=== PATIENT | male | born 1955 | race Caucasian/White ===

== ENCOUNTER 2018-03-13 04:05 | Emergency (ER) | payer SELFPAY ==
[~2018-03-13] VITALS: Ht 175.3 cm; Wt 66.5 kg
[2018-03-13 04:12] VITALS: BP 151/91
--- NOTE | 2018-03-13 04:14 | ED.ADGEN ---
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 No grinding or foreign body hx. Pt. has a photo phobia.. No marked decrease in visual acuity.. Does have burning sensation in both eyes. Patient has had previous episodes of this. Patient's last tetanus approximately 3 years ago. No history immunosuppression. No specific history of ill contacts. Review of Systems Review of Systems Constitutional: Denies fever or chills [] Eyes: Denies change in visual acuity, . Patient is complaining of conjunctiva to redness, and bilateral eye pain []as per history of present illness HENT: Denies nasal congestion or sore throat [] Respiratory: Denies cough or shortness of breath [] Cardiovascular: No additional information not addressed in HPI [] GI: Denies abdominal pain, nausea, vomiting, bloody stools or diarrhea [] : Denies dysuria or hematuria [] Musculoskeletal: Denies back pain or joint pain [] Integument: Denies rash or skin lesions [] Neurologic: Denies headache, focal weakness or sensory changes [] Endocrine: Denies polyuria or polydipsia [] All other systems were reviewed and found to be within normal limits, except as documented in this note. Family History Family History Noncontributory Current Medications Current Medications Current Medications Medications (Trade) Dose Ordered Sig/Herman Start Time Stop Time Status Last Admin Dose Admin Cyclopentolate HCl (Cyclogyl) 1 drop STK-MED ONCE 03/13/18 04:26 03/13/18 05:06 DC Erythromycin (Romycin) 1 inch STK-MED ONCE 03/13/18 04:26 03/13/18 05:06 DC Eye Irrigation Solution 30 ml STK-MED ONCE 03/13/18 04:26 03/13/18 04:27 DC Fluorescein Sodium (Ful-Florinda 1mg) 1 strip STK-MED ONCE 03/13/18 04:26 03/13/18 05:06 DC Hydrocodone Bitartrate/ Ibuprofen (Vicoprofen 7.5-200) 1 tab STK-MED ONCE 03/13/18 04:27 03/13/18 05:06 DC Morphine Sulfate (Morphine 10mg Syringe) 10 mg STK-MED ONCE 03/13/18 04:45 03/13/18 05:06 DC Ondansetron HCl (Zofran Odt) 4 mg STK-MED ONCE 03/13/18 04:40 03/13/18 05:06 DC Tetracaine HCl (Tetracaine) 40 drop STK-MED ONCE 03/13/18 04:26 03/13/18 05:06 DC Allergies Allergies Allergies Coded Allergies Type Severity Reaction Last Updated Verified No Known Drug Allergies 09/29/14 No Physical Exam Physical Exam Constitutional: in acute distress, non-toxic appearance. [] HENT: Normocephalic, atraumatic, bilateral external ears normal, oropharynx moist, no oral exudates, nose normal. [] Eyes: PERRLA, EOMI, conjunctiva injected, no discharge. 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 Fundus limited but appear benign. Neck: Normal range of motion, no tenderness, supple, no stridor. [] Cardiovascular:Heart rate regular rhythm, no murmur [] Lungs & Thorax: Bilateral breath sounds equal at apex with scattered wheezes on auscultation [] Abdomen: Bowel sounds normal, soft, no tenderness, no masses, no pulsatile masses. [] Skin: Warm, dry, no erythema, no rash. [] Back: No tenderness, no CVA tenderness. [] Extremities: No tenderness, no cyanosis, no clubbing, ROM intact, no edema. [] Neurologic: Alert and oriented X 3, normal motor function, normal sensory function, no focal deficits noted. [] Psychologic: Affect Anxious, judgement normal, mood normal. [] Current Patient Data Vital Signs Vital Signs Date Time Temp Pulse Resp B/P (MAP) Pulse Ox O2 Delivery O2 Flow Rate FiO2 03/13/18 04:12 98.5 95 20 96 Room Air EKG EKG [] Radiology/Procedures Radiology/Procedures [] Course & Med Decision Making Course & Med Decision Making Pertinent Labs and Imaging studies reviewed. (See chart for details)- apply a very small amount of erythromycin ointment 4 times a day. Cool compresses may be helpful. A take Tylenol and ibuprofen for pain. Vicoprofen up to 4 times a day for marked pain. If persistent pain will need follow-up exam with ophthalmology. Patient encouraged to wear eye protection in the future. [] Final Impression Final Impression 1. Welding Eye Gregorio- [] UV Photo keratosis Dragon Disclaimer Dragon Disclaimer This electronic medical record was generated, in whole or in part, using a voice recognition dictation system. OMAR NAVARRETE MD Mar 13, 2018 04:14
[2018-03-13] MEDS ORDERED: ERYTHROMYCIN 0.5% OPHTH OINTMENT 1GM TUBE. OU ONE (04:15)
[2018-03-13] MEDS ORDERED: TETRACAINE 0.5% OPHTH SOLUTION 4ML BOTTLE. OU ONE (04:15)
[2018-03-13] MEDS ORDERED: FLUORESCEIN 1MG EYE STRIP. OU ONE (04:15)
[2018-03-13] MEDS ORDERED: HYDR-79 PO (04:25)
[2018-03-13] MEDS ORDERED: TETRACAINE 0.5% OPHTH SOLUTION 4ML BOTTLE. ONE (04:26)
[2018-03-13] MEDS ORDERED: ERYTHROMYCIN 0.5% OPHTH OINTMENT 1GM TUBE. ONE (04:26)
[2018-03-13] MEDS ORDERED: EYE-STREAM OPTH SOLUTION 30 ML BOTTLE. ONE (04:26)
[2018-03-13] MEDS ORDERED: CYCLOPENTOLATE 1% OPTH SOLUTION 2ML BOTTLE. ONE (04:26)
[2018-03-13] MEDS ORDERED: FLUORESCEIN 1MG EYE STRIP. ONE (04:26)
[2018-03-13] MEDS ORDERED: HYDROcodon/IBUPROFEN 7.5/200MG 1 TAB TABLET ONE (04:27)
[2018-03-13] MEDS ORDERED: HYDROcodon/IBUPROFEN 7.5/200MG 1 TAB TABLET PO ONE (04:30)
[2018-03-13] MEDS ORDERED: CYCLOPENTOLATE 1% OPTH SOLUTION 2ML BOTTLE. OU ONE (04:30)
[2018-03-13] MEDS ORDERED: ONDANSETRON ODT 4 MG TAB.RAPDIS ONE (04:40)
[2018-03-13] MEDS ORDERED: MORPHINE SULFATE 10 MG/ML SYRINGE. ONE (04:45)
[2018-03-13] MEDS ORDERED: ONDANSETRON ODT 4 MG TAB.RAPDIS PO ONE (04:45)
[2018-03-13] MEDS ORDERED: MORPHINE SULFATE 10 MG/ML SYRINGE. SQ ONE (04:45)
== END 2018-03-13 04:49 | disposition home or self-care (01) ==
LOC: ER 04:05
DX: L57.0 Actinic keratosis (principal); H16.133 Photokeratitis, bilateral; W89.8XXA Exposure to other man-made visible and ultraviolet light, initial encounter; Y93.89 Activity, other specified; Y99.8 Other external cause status; Y92.89 Other specified places as the place of occurrence of the external cause
CPT/HCPCS: 96372; 99284; J2270; Q0162

== ENCOUNTER 2018-05-07 22:26 | Emergency (ER) | payer SELFPAY ==
[~2018-05-07] VITALS: Ht 175.3 cm; Wt 68.0 kg
[~2018-05-07 22:26] MED LIST: HYDR-79 PO
[2018-05-07 22:35] VITALS: BP 133/88
--- NOTE | 2018-05-07 23:01 | ED.ADGEN ---
Past History Past Medical History: Other Past Surgical History: Other Alcohol Use: None Drug Use: None Adult General Chief Complaint Chief Complaint ".. I am stupid.. this is second time you seen me for this...".." I got welding flash burn to my eyes again..." HPI HPI Patient is a 62 year old male who presents with above hx and complaints welding flash bui to eyes. This is the second time I treated this patient for this condition. Patient has bilateral injected conjunctiva. Has mild fluorescein uptake of the cornea. No obvious foreign body. Has photosensitivity. Has findings consistent with acute asthmatic iritis. Patient's tetanus is up-to- date. Visual acuities are at baseline in spite of his bilateral eye pain. No history immunosuppression. No history of ill. No history of ill contacts. Patient rates his current eye pain as 10 out of 10. Review of Systems Review of Systems Constitutional: Denies fever or chills [] Eyes: Complains of, bilateral redness, and eye pain [] HENT: Denies nasal congestion or sore throat [] Respiratory: Denies cough or shortness of breath [] Cardiovascular: No additional information not addressed in HPI [] GI: Denies abdominal pain, nausea, vomiting, bloody stools or diarrhea [] : Denies dysuria or hematuria [] Musculoskeletal: Denies back pain or joint pain [] Integument: Denies rash or skin lesions [] Neurologic: Denies headache, focal weakness or sensory changes [] Endocrine: Denies polyuria or polydipsia [] All other systems were reviewed and found to be within normal limits, except as documented in this note. Family History Family History Noncontributory Current Medications Current Medications Current Medications Medications (Trade) Dose Ordered Sig/[facility] Start Time Stop Time Status Last Admin Dose Admin Cyclopentolate HCl (Cyclogyl) 1 drop 1X ONCE 05/07/18 23:15 05/07/18 23:16 DC Erythromycin (Romycin) 0.25 inch 1X ONCE 05/07/18 23:15 05/07/18 23:16 DC Ketorolac Tromethamine (Toradol Im) 60 mg 1X ONCE 05/07/18 23:15 05/07/18 23:16 DC 05/08/18 00:27 60 MG Morphine Sulfate (Morphine 10mg Syringe) 10 mg 1X ONCE 05/07/18 23:15 05/07/18 23:16 DC 05/08/18 00:27 10 MG Tetracaine HCl (Tetracaine) 1 drop 1X ONCE 05/07/18 23:15 05/07/18 23:16 DC See nursing for home meds Allergies Allergies Allergies Coded Allergies Type Severity Reaction Last Updated Verified No Known Drug Allergies 09/29/14 No Physical Exam Physical Exam Constitutional: in acute distress, non-toxic appearance. [] HENT: Normocephalic, atraumatic, bilateral external ears normal, oropharynx moist, no oral exudates, nose normal. [] Eyes: PERRLA, EOMI, conjunctiva injected, no discharge. [Slight fluorescein up take of cornea. Photo sensitive to light. ] Neck: Normal range of motion, no tenderness, supple, no stridor. [] Cardiovascular:Heart rate regular rhythm, no murmur [] Lungs & Thorax: Bilateral breath sounds equal at apexes with scattered wheezes on auscultation [] Abdomen: Bowel sounds normal, soft, no tenderness, no masses, no pulsatile masses. [] Skin: Warm, dry, no erythema, no rash. [] Back: No tenderness, no CVA tenderness. [] Extremities: No tenderness, no cyanosis, no clubbing, ROM intact, no edema. [] Neurologic: Alert and oriented X 3, normal motor function, normal sensory function, no focal deficits noted. [] Psychologic: Affect anxious,l judgement normal, mood normal. [] Current Patient Data Vital Signs Vital Signs Date Time Temp Pulse Resp B/P (MAP) Pulse Ox O2 Delivery O2 Flow Rate FiO2 05/08/18 00:27 18 Room Air EKG EKG [] Radiology/Procedures Radiology/Procedures [] Course & Med Decision Making Course & Med Decision Making Pertinent Labs and Imaging studies reviewed. (See chart for details). Avoid further welding without eye protection. Small amount of erythromycin to both eyes 4 times a day. May take Vicoprofen up 4 times a day for pain. Patient follow-up primary care. Patient follow-up with ophthalmology. Must not well without eye protection [] Final Impression Final Impression 1. Corneal Burn- UV[]- Welding Flash bui. Dragon Disclaimer Dragon Disclaimer This electronic medical record was generated, in whole or in part, using a voice recognition dictation system. OMAR NAVARRETE MD May 07, 2018 23:01
[2018-05-07] MEDS ORDERED: HYDR-79 PO (23:09)
[2018-05-07] MEDS ORDERED: TETRACAINE 0.5% OPHTH SOLUTION 4ML BOTTLE. OU ONE (23:15)
[2018-05-07] MEDS ORDERED: KETOROLAC 60 MG/2 ML VIAL. IM ONE (23:15)
[2018-05-07] MEDS ORDERED: ERYTHROMYCIN 0.5% OPHTH OINTMENT 1GM TUBE. OU ONE (23:15)
[2018-05-07] MEDS ORDERED: CYCLOPENTOLATE 1% OPTH SOLUTION 2ML BOTTLE. OU ONE (23:15)
[2018-05-07] MEDS ORDERED: MORPHINE SULFATE 10 MG/ML SYRINGE. SQ ONE (23:15)
== END 2018-05-08 01:15 | disposition home or self-care (01) ==
LOC: ER 22:26
DX: T26.12XA Burn of cornea and conjunctival sac, left eye, initial encounter (principal); T26.11XA Burn of cornea and conjunctival sac, right eye, initial encounter; W89.0XXA Exposure to welding light (arc), initial encounter; Y93.89 Activity, other specified; Y92.89 Other specified places as the place of occurrence of the external cause; Y99.8 Other external cause status
CPT/HCPCS: 96372; 99284; J1885; J2270

== ENCOUNTER 2018-05-30 17:26 | Emergency (ER) | payer SELFPAY ==
--- NOTE | 2018-05-30 17:39 | PHYS DOC ---
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 He states he hit his low back. He denies hitting his head or neck. He does not have a headache or any neck pain. He denies any radicular symptoms. He denies any bowel or bladder dysfunction. He denies saddle paresthesias. He was able to walk at the scene but with some discomfort. He states in the past when he has had some pain like this he is used Ultram.[] Review of Systems Review of Systems Constitutional: Denies fever or chills [] Eyes: Denies change in visual acuity, redness, or eye pain [] HENT: Denies nasal congestion or sore throat [] Respiratory: Denies cough or shortness of breath [] Cardiovascular: No additional information not addressed in HPI [] GI: Denies abdominal pain, nausea, vomiting, bloody stools or diarrhea [] : Denies dysuria or hematuria [] Musculoskeletal: Back pain as described above[] Integument: Denies rash or skin lesions [] Neurologic: Denies headache, focal weakness or sensory changes [] Endocrine: Denies polyuria or polydipsia [] All other systems were reviewed and found to be within normal limits, except as documented in this note. Allergies Allergies Allergies Coded Allergies Type Severity Reaction Last Updated Verified No Known Drug Allergies 09/29/14 No Physical Exam Physical Exam Constitutional: Well developed, well nourished, no acute distress, non-toxic appearance. [] HENT: Normocephalic, atraumatic, bilateral external ears normal, oropharynx moist, no oral exudates, nose normal. [] Eyes: PERRLA, EOMI, conjunctiva normal, no discharge. [] Neck: Normal range of motion, no tenderness, supple, no stridor. [] Cardiovascular:Heart rate regular rhythm, no murmur [] Lungs & Thorax: Bilateral breath sounds clear to auscultation [] Abdomen: Bowel sounds normal, soft, no tenderness, no masses, no pulsatile masses. [] Skin: Warm, dry, no erythema, no rash. [] Back: No midline spinal tenderness he does have some lumbar paraspinal muscle spasm there is no obvious abrasion[] Extremities: No tenderness, no cyanosis, no clubbing, ROM intact, no edema. [] Neurologic: Alert and oriented X 3, normal motor function, normal sensory function, no focal deficits noted. [] Psychologic: Affect normal, judgement normal, mood normal. [] EKG EKG [] Radiology/Procedures Radiology/Procedures PROCEDURE: LUMBAR SPINE 2-3V LUMBAR SPINE 2-3V History: Fall, low back pain Comparison: None. Findings: 3 views lumbar spine are submitted. There is [id number] levoscoliosis centered about L3-4. There is degenerative disc disease greatest L3-4 to L5-S1. Lumbar vertebral body stature is overall maintained, limited evaluation on the lateral view due to the scoliotic curvature. Evaluation of AP alignment is also limited due to the scoliotic curvature. There is facet degenerative change greater inferiorly of the lumbar spine. No acute osseous abnormality is identified by radiographs. Impression: 1. No acute osseous abnormality is identified by radiographs. There is lumbar levoscoliosis. There is degenerative disc disease and facet degenerative change greater inferiorly of the lumbar spine. Electronically signed by: Angel Magdaleno MD (05/30/2018 6:19 PM) [facility]- Course & Med Decision Making Course & Med Decision Making Pertinent Labs and Imaging studies reviewed. (See chart for details) 1800- Sign out received from Dr. Holt for patient with low back injury. Patient pending XR imaging. Patient seen and evaluated by myself. XR without acute fracture or dislocation. Patient neurologically intact. Symptomatic treatment provided with interval improvement. Patient stable for discharge with outpatient follow-up with PCP. Discussed findings and plan with patient, who acknowledges understanding and agreement. Dragon Disclaimer Dragon Disclaimer This electronic medical record was generated, in whole or in part, using a voice recognition dictation system. Departure Departure: Impression: Primary Impression: Back pain Disposition: 01 HOME, SELF-CARE Condition: STABLE Referrals: PCP,NO (PCP) Patient Instructions: Back Pain, Adult, [id number] Scripts Prednisone (PREDNISONE) 20 Mg Tablet 2 TAB PO DAILY, #8 TAB Start on Friday05/31/18 Prov: DAIANA ECKERT DO 9/1/18 Orphenadrine Citrate (ORPHENADRINE CITRATE) 100 Mg Tablet.er 1 TAB PO BID PRN for MUSCLE PAIN, #14 TAB 0 Refills Prov: DAIANA ECKERT DO 05/30/18 Tramadol Hcl (TRAMADOL HCL) 50 Mg Tablet 50 MG PO PRN Q6HRS PRN for PAIN, #10 TAB Prov: DAIANA ECKERT DO 05/30/18 Problem Qualifiers Primary Impression: Back pain Back pain location: low back pain Chronicity: acute Back pain laterality: bilateral Sciatica presence: without sciatica Qualified Codes: M54.5 - Low back pain EVANGELIST HOLT DO May 30, 2018 17:39 DAIANA ECKERT DO May 30, 2018 18:53
[2018-05-30 17:40] VITALS: BP 145/83
[2018-05-30] MEDS ORDERED: ORPHENADRINE CITRATE 60 MG/2 ML VIAL. IM ONE (17:45)
[2018-05-30] MEDS ORDERED: KETOROLAC 60 MG/2 ML VIAL. IM ONE (17:45)
--- NOTE | 2018-05-30 18:23 | RAD ---
LUMBAR SPINE 2-3V History: Fall, low back pain Comparison: None. Findings: 3 views lumbar spine are submitted. There is [id number] levoscoliosis centered about L3-4. There is degenerative disc disease greatest L3-4 to L5-S1. Lumbar vertebral body stature is overall maintained, limited evaluation on the lateral view due to the scoliotic curvature. Evaluation of AP alignment is also limited due to the scoliotic curvature. There is facet degenerative change greater inferiorly of the lumbar spine. No acute osseous abnormality is identified by radiographs. Impression: 1. No acute osseous abnormality is identified by radiographs. There is lumbar levoscoliosis. There is degenerative disc disease and facet degenerative change greater inferiorly of the lumbar spine. Electronically signed by: Angel Magdaleno MD (05/30/2018 6:19 PM) [facility]
[2018-05-30] MEDS ORDERED: traMADol 50 MG TABLET PO ONE (18:45)
[2018-05-30] MEDS ORDERED: predniSONE 20 MG TABLET PO ONE (18:45)
[2018-05-30] MEDS ORDERED: ORPH-16 PO (18:53)
[2018-05-30] MEDS ORDERED: TRAM50TA PO (18:53)
[2018-05-30] MEDS ORDERED: PRED20TA PO (18:53)
== END 2018-05-30 19:00 | disposition home or self-care (01) ==
LOC: ER 17:26
DX: M54.5 Low back pain (principal); G89.11 Acute pain due to trauma; W11.XXXA Fall on and from ladder, initial encounter; Y93.H2 Activity, gardening and landscaping; Y92.59 Other trade areas as the place of occurrence of the external cause; Y99.8 Other external cause status
CPT/HCPCS: 72100; 96372; 99284; J1885; J2360

== ENCOUNTER 2018-08-12 20:38 | Emergency (ER) | payer SELFPAY ==
[~2018-08-12] VITALS: Ht 175.3 cm; Wt 68.0 kg
[~2018-08-12 20:38] MED LIST changes: +ORPH-16 PO; +PRED20TA PO; +TRAM50TA PO
--- NOTE | 2018-08-12 20:45 | ED.ADGEN ---
Past History Past Medical History: No Pertinent History Past Surgical History: No Surgical History Alcohol Use: None Drug Use: None Adult General Chief Complaint Chief Complaint ".. I am not a horse ap.. but my brother bought this horse.. and he wanted to see it run... So .. I was on it at full gallop.. and it stopped but ... I didn' t.. and I came off landing on my butt.. that was about 5:30 .. (PM). .. but the pain not let up yet...." HPI HPI Patient is a 63 year old male who presents with above hx and complaints lumbar back pain after falling of his brother melissa howard. Pt. has marked lumbar spasms. Has be ambulatory with discomfort since the fall at 1730 Hrs. Pt. denies other injury. Review of Systems Review of Systems Constitutional: Denies fever or chills [] Eyes: Denies change in visual acuity, redness, or eye pain [] HENT: Denies nasal congestion or sore throat [] Respiratory: Denies cough or shortness of breath [] Cardiovascular: No additional information not addressed in HPI [] GI: Denies abdominal pain, nausea, vomiting, bloody stools or diarrhea [] : Denies dysuria or hematuria [] Musculoskeletal: Complaints back pain and sacral pain Integument: Denies rash or skin lesions [] Neurologic: Denies headache, focal weakness or sensory changes [] Endocrine: Denies polyuria or polydipsia [] All other systems were reviewed and found to be within normal limits, except as documented in this note. Family History Family History Non-contributory Current Medications Current Medications Current Medications Medications (Trade) Dose Ordered Sig/Herman Start Time Stop Time Status Last Admin Dose Admin Lorazepam (Ativan) 2 mg 1X ONCE 08/12/18 22:00 08/12/18 22:01 DC 08/12/18 21:59 2 MG Morphine Sulfate (Morphine 10mg Syringe) 10 mg 1X ONCE 08/12/18 21:15 08/12/18 21:16 DC 08/12/18 21:04 10 MG Orphenadrine Citrate (Norflex) 60 mg 1X ONCE 08/12/18 21:30 08/12/18 21:31 DC 08/12/18 21:27 60 MG Allergies Allergies Allergies Coded Allergies Type Severity Reaction Last Updated Verified No Known Drug Allergies 09/29/14 No Physical Exam Physical Exam Constitutional: , in moderate to acute distress, non-toxic appearance. [] HENT: Normocephalic, atraumatic, bilateral external ears normal, oropharynx moist, no oral exudates, nose normal. Edentulous Eyes: PERRLA, EOMI, conjunctiva normal, no discharge. [] Neck: Normal range of motion, no tenderness, supple, no stridor. [] Cardiovascular:Heart rate regular rhythm, no murmur [] Lungs & Thorax: Bilateral breath sounds equal at apex with scattered wheezes auscultation [] Abdomen: Bowel sounds normal, soft, no tenderness, no masses, no pulsatile masses. [] Skin: Warm, dry, no erythema, no rash. Poor turgor Back: Lumbar tenderness, no CVA tenderness. Muscle spasms lumbar area Extremities: No tenderness, no cyanosis, no clubbing, ROM intact, no edema. Arthritic changes Neurologic: Alert and oriented X 3, normal motor function, normal sensory function, no focal deficits noted. DTR +2 patella. Straight leg lift. Patient is ambulatory Psychologic: Affect normal, judgement normal, mood normal. [] Current Patient Data Vital Signs Vital Signs Date Time Temp Pulse Resp B/P (MAP) Pulse Ox O2 Delivery O2 Flow Rate FiO2 08/12/18 22:05 95 18 124/88 (100) 95 Room Air 08/12/18 20:49 98.2 EKG EKG [] Radiology/Procedures Radiology/Procedures The of lumbar sacral and pelvis shows no obvious fracture or dislocation. Does have degenerative joint changes. Bilateral foraminal narrowing. Course & Med Decision Making Course & Med Decision Making Pertinent Labs and Imaging studies reviewed. (See chart for details). Ice, rest , take tylenol and ibuprofen for pain. Marked discomfort take vicoprofen and flexeril for spasms. Follow up with primary. Return if any concerns. [] Final Impression Final Impression 1. Fall from Horse 2. Lumbar[]and pelvic contusions 3. Lumbar sprain and Strain Dragon Disclaimer Dragon Disclaimer This electronic medical record was generated, in whole or in part, using a voice recognition dictation system. OMAR NAVARRETE MD Aug 12, 2018 20:45
[2018-08-12] MEDS ORDERED: MORPHINE SULFATE 10 MG/ML SYRINGE. SQ ONE (21:15)
[2018-08-12] MEDS ORDERED: ORPHENADRINE CITRATE 60 MG/2 ML VIAL. IM ONE (21:30)
--- NOTE | 2018-08-12 21:37 | RAD ---
CT PELVIS WO CONTRAST dated 08/12/2018 9:20 PM Indication: Pain after fall.Fall from horse tonight, severe lower back and pelvic pain. Comparison: No comparison is available. Technique: Contiguous axial imaging of the pelvis performed with thin cut coronal and sagittal reconstruction. One or more of the following individualized dose reduction techniques were utilized for this examination: 1. Automated exposure control 2. Adjustment of the mA and/or kV according to patient size 3. Use of iterative reconstruction technique Findings: Pelvic ring is intact. No displaced fracture. Bony alignment is anatomic. No evidence of femoral neck fracture. No sacral fracture is identified. There is mild degenerative change of the bilateral hip joint. Mild degenerative change of the bilateral SI joint. Spondylotic changes of the lower lumbar spine with moderate levoconvex scoliotic curvature. Visualized soft tissue structures are unremarkable. There are scattered diverticula within the distal colon. No significant free fluid or lymphadenopathy. The urinary bladder is nondistended. Prostate gland is normal in size. IMPRESSION: 1. No acute bony abnormality. No evidence of displaced fracture. 2. Degenerative changes as described above. 3. Diverticulosis. Electronically signed by: Krishna Salinas MD (08/12/2018 9:33 PM) [employer]
--- NOTE | 2018-08-12 21:45 | RAD ---
CT LUMBAR SPINE WO CONTRAST dated 08/12/2018 9:18 PM Indication: Back pain, recent fallFall from horse tonight, severe lower back and pelvic pain. Comparison: No comparison is available. Technique: Contiguous axial imaging of the lumbar spine performed with thin cut coronal and sagittal reconstruction. One or more of the following individualized dose reduction techniques were utilized for this examination: 1. Automated exposure control 2. Adjustment of the mA and/or kV according to patient size 3. Use of iterative reconstruction technique Findings: There is moderate levoconvex scoliotic curvature. Slight retrolisthesis of L1 on L2 and L2 on L3. Sagittal alignment is otherwise anatomic. Vertebral body heights are maintained. Posterior elements are intact. No evidence of fracture. Mild endplate hypertrophic changes throughout. Mild to moderate arthrosis of the lower lumbar apophyseal joints. No apparent focal disc herniation or significant central canal compromise. There is minimal broad-based bulging at L2-L3, L3-L4, L4-L5 and L5-S1. Mild bilateral foraminal narrowing at the L5-S1 and L4-L5 levels. Limited images of lung bases are clear. Images of the retroperitoneum are unremarkable. Abdominal aorta normal in caliber. IMPRESSION: 1. No evidence of fracture or malalignment. 2. Mild to moderate multilevel spondylosis with levoconvex scoliotic curvature. Electronically signed by: Krishna Salinas MD (08/12/2018 9:42 PM) [facility]
[2018-08-12] MEDS ORDERED: HYDR-79 PO (21:55)
[2018-08-12] MEDS ORDERED: CYCL-331 PO (21:55)
[2018-08-12] MEDS ORDERED: LORazepam 1 MG TABLET PO ONE (22:00)
[2018-08-12 22:05] VITALS: BP 124/88
== END 2018-08-12 22:11 | disposition home or self-care (01) ==
LOC: ER 20:38
DX: S33.5XXA Sprain of ligaments of lumbar spine, initial encounter (principal); S30.0XXA Contusion of lower back and pelvis, initial encounter; V80.010A Animal-rider injured by fall from or being thrown from horse in noncollision accident, initial encounter; Y93.52 Activity, horseback riding; Y92.89 Other specified places as the place of occurrence of the external cause; Y99.8 Other external cause status
CPT/HCPCS: 72131; 72192; 96372; 99284; J2270; J2360

== ENCOUNTER 2018-09-16 01:22 | Emergency (ER) | payer SELFPAY ==
[~2018-09-16] VITALS: Ht 175.3 cm; Wt 65.8 kg
[~2018-09-16 01:22] MED LIST changes: +CYCL-331 PO; +HYDR-1179 PO; -HYDR-79 PO
--- NOTE | 2018-09-16 01:53 | PHYS DOC ---
Adult General Chief Complaint Chief Complaint scrotal pain HPI HPI 63 years old gentleman presented emergency department with the right scrotal pain after trauma happened at 3 pm, it was headed with baseball . He applied ice noticed minimal swelling pain is given worse since 3 PM Review of Systems Review of Systems Constitutional: Denies fever or chills [] Eyes: Denies change in visual acuity, redness, or eye pain [] HENT: Denies nasal congestion or sore throat [] Respiratory: Denies cough or shortness of breath [] Cardiovascular: No additional information not addressed in HPI [] GI: Denies abdominal pain, nausea, vomiting, bloody stools or diarrhea [] : Denies dysuria or hematuria [] Musculoskeletal: Denies back pain or joint pain [] Integument: Denies rash or skin lesions [] Neurologic: Denies headache, focal weakness or sensory changes [] Endocrine: Denies polyuria or polydipsia [] All other systems were reviewed and found to be within normal limits, except as documented in this note. Current Medications Current Medications Current Medications Medications (Trade) Dose Ordered Sig/Herman Start Time Stop Time Status Last Admin Dose Admin Acetaminophen/ Hydrocodone Bitart (Lortab 5/325) 2 tab 1X ONCE 09/16/18 02:00 09/16/18 02:03 DC 09/16/18 01:57 2 TAB Ibuprofen (Motrin) 600 mg 1X ONCE 09/16/18 02:00 09/16/18 02:03 DC 09/16/18 01:58 600 MG Allergies Allergies Allergies Coded Allergies Type Severity Reaction Last Updated Verified No Known Drug Allergies 09/29/14 No Physical Exam Physical Exam Constitutional: Well developed, well nourished, no acute distress, non-toxic appearance. [] HENT: Normocephalic, atraumatic, bilateral external ears normal, oropharynx moist, no oral exudates, nose normal. [] Eyes: PERRLA, EOMI, conjunctiva normal, no discharge. [] Neck: Normal range of motion, no tenderness, supple, no stridor. [] Cardiovascular:Heart rate regular rhythm, no murmur [] Lungs & Thorax: Bilateral breath sounds clear to auscultation [] Abdomen: Bowel sounds normal, soft, no tenderness, no masses, no pulsatile masses. [] : swelling on right scrotum , tender , Skin: Warm, dry, no erythema, no rash. [] Back: No tenderness, no CVA tenderness. [] Extremities: No tenderness, no cyanosis, no clubbing, ROM intact, no edema. [] Neurologic: Alert and oriented X 3, normal motor function, normal sensory function, no focal deficits noted. [] Psychologic: Affect normal, judgement normal, mood normal. [] Current Patient Data Vital Signs Vital Signs Date Time Temp Pulse Resp B/P (MAP) Pulse Ox O2 Delivery O2 Flow Rate FiO2 09/16/18 01:57 20 95 Room Air 09/16/18 01:30 98.6 97 Lab Results Laboratory Tests Test 09/16/18 02:20 Urine Collection Type Unknown Urine Color Yellow Urine Clarity Clear Urine pH 6.0 Urine Specific [place] 1.015 Urine Protein Neg (NEG-TRACE) Urine Glucose (UA) Neg mg/dL (NEG) Urine Ketones (Stick) Neg mg/dL (NEG) Urine Blood Neg (NEG) Urine Nitrite Neg (NEG) Urine Bilirubin Neg (NEG) Urine Urobilinogen Dipstick 0.2 mg/dL (0.2 mg/dL) Urine Leukocyte Esterase Neg (NEG) Urine RBC 0 /HPF (0-2) Urine WBC Rare /HPF (0-4) Urine Squamous Epithelial Cells Occ /LPF Urine Bacteria 0 /HPF (0-FEW) EKG EKG [] Radiology/Procedures Radiology/Procedures [] Impressions: reviewed Course & Med Decision Making Course & Med Decision Making Pertinent Labs and Imaging studies reviewed. (See chart for details) [] Final Impression Final Impression [] Problems: (1) Contusion of scrotum and testes, initial encounter Dragon Disclaimer Dragon Disclaimer This electronic medical record was generated, in whole or in part, using a voice recognition dictation system. YASMIN OHARA MD Sep 16, 2018 01:53
[2018-09-16] MEDS ORDERED: HYDR-3165 PO (01:54)
[2018-09-16] MEDS ORDERED: HYDROcodone/APAP 5/325MG 1 TAB TABLET PO ONE ×2 (02:00→03:45)
[2018-09-16] MEDS ORDERED: IBUPROFEN 600 MG TABLET. PO ONE (02:00)
[2018-09-16 02:42] LABS: BILIRUBIN,URINE NEG (NEG); CLARITY,URINE CLEAR; COLOR,URINE YELLOW; GLUCOSE,URINE NEG (NEG); NITRITE,URINE NEG (NEG); UROBILINOGEN,URINE 0.2 mg/dL (0.2 mg/dL)
[2018-09-16 02:43] LABS: BACTERIA,URINE 0 /HPF (0-FEW); RBC,URINE 0 /HPF (0-2); SQUAMOUS EPITHELIAL CELL,UR OCC /LPF; WBC,URINE RARE /HPF (0-4)
[2018-09-16] MEDS ORDERED: CIPR500T94 PO (03:16)
--- NOTE | 2018-09-16 03:21 | RAD ---
Testicular ultrasound History: RT TESTICLE PAIN AFTER BASEBALL HIT HIM YESTERDAY @ 3PM, SEVERE PAIN . Comparison: None. Technique: Multiple grayscale, color flow Doppler and Doppler spectral analysis images of the scrotum are obtained. Findings: Right testicle measures 4.5 x 2.9 x 1.8 cm. Right testicle demonstrates normal parenchymal echogenicity. Inferior to the right testicle there is a heterogeneous hyperechogenicity measuring approximately 1.6 x 1.7 cm. Color Doppler interrogation does not demonstrate internal blood flow. The right epididymis does not demonstrate hyperemia. Left testicle measures 4.1 x 2.5 x 2 cm. Left testicle demonstrates normal parenchymal echogenicity. The left epididymis is unremarkable. There is no right hydrocele or varicocele. No left varicocele. There is trace left hydrocele. Scrotal hyperemia or swelling are not seen. Doppler imaging demonstrates normal flow to both testicles, without evidence of torsion. IMPRESSION: 1. No testicular fracture. Normal blood flow in the testicles. 2. Inferior and medial to the right testicle there is a nonvascular heterogeneous hyperechogenicity that given the history may be a hematoma. Suggest testicular ultrasound follow-up in 3 months to assess for resolution. 3. Trace left hydrocele. Electronically signed by: Yeison Thomas MD (09/16/2018 3:17 AM) [facility]
[2018-09-16] MEDS ORDERED: CIPROFLOXACIN HCL 500 MG TABLET PO ONE (03:45)
[2018-09-16 03:52] VITALS: BP 149/94
== END 2018-09-16 03:56 | disposition home or self-care (01) ==
LOC: ER 01:22
DX: S30.22XA Contusion of scrotum and testes, initial encounter (principal); W21.03XA Struck by baseball, initial encounter; Y93.89 Activity, other specified; Y92.89 Other specified places as the place of occurrence of the external cause; Y99.8 Other external cause status
CPT/HCPCS: 76870; 81001; 99284

== ENCOUNTER 2018-11-30 20:44 | Emergency (ER) | payer SELFPAY ==
[~2018-11-30] VITALS: Ht 175.3 cm; Wt 68.0 kg
[~2018-11-30 20:44] MED LIST changes: +CIPR500T94 PO; +HYDR-3165 PO
[2018-11-30 20:55] VITALS: BP 144/76
--- NOTE | 2018-11-30 21:26 | ED.ADGEN ---
Past History Past Medical History: No Pertinent History Past Surgical History: Other Alcohol Use: None Drug Use: None Adult General Chief Complaint Chief Complaint dental pain HPI HPI 63 years old male presented to the emergency department with the dental pain on the right lower side for about a week he is supposed to see his dentist on Friday he cannot take the pain anymore and he is here for antibiotic and painkillers Review of Systems Review of Systems Constitutional: Denies fever or chills [] Eyes: Denies change in visual acuity, redness, or eye pain [] HENT: Denies nasal congestion or sore throat [] Respiratory: Denies cough or shortness of breath [] Cardiovascular: No additional information not addressed in HPI [] GI: Denies abdominal pain, nausea, vomiting, bloody stools or diarrhea [] : Denies dysuria or hematuria [] Musculoskeletal: Denies back pain or joint pain [] Integument: Denies rash or skin lesions [] Neurologic: Denies headache, focal weakness or sensory changes [] Endocrine: Denies polyuria or polydipsia [] All other systems were reviewed and found to be within normal limits, except as documented in this note. Allergies Allergies Allergies Coded Allergies Type Severity Reaction Last Updated Verified No Known Drug Allergies 11/30/18 No Physical Exam Physical Exam Constitutional: Well developed, well nourished, no acute distress, non-toxic appearance. [] HENT: Normocephalic, atraumatic, bilateral external ears normal, oropharynx moist, no oral exudates, nose normal. [] Eyes: PERRLA, EOMI, conjunctiva normal, no discharge. [] Neck: Normal range of motion, no tenderness, supple, no stridor. [] Cardiovascular:Heart rate regular rhythm, no murmur [] Lungs & Thorax: Bilateral breath sounds clear to auscultation [] Abdomen: Bowel sounds normal, soft, no tenderness, no masses, no pulsatile masses. [] Skin: Warm, dry, no erythema, no rash. [] Back: No tenderness, no CVA tenderness. [] Extremities: No tenderness, no cyanosis, no clubbing, ROM intact, no edema. [] Neurologic: Alert and oriented X 3, normal motor function, normal sensory function, no focal deficits noted. [] Psychologic: Affect normal, judgement normal, mood normal. [] Current Patient Data Vital Signs Vital Signs Date Time Temp Pulse Resp B/P (MAP) Pulse Ox O2 Delivery O2 Flow Rate FiO2 11/30/18 20:55 98.8 90 16 98 Room Air EKG EKG [] Radiology/Procedures Radiology/Procedures [] Course & Med Decision Making Course & Med Decision Making Pertinent Labs and Imaging studies reviewed. (See chart for details) [] Final Impression Final Impression [] Problems: (1) Pain, dental Dragon Disclaimer Dragon Disclaimer This electronic medical record was generated, in whole or in part, using a voice recognition dictation system. YASMIN OHARA MD Nov 30, 2018 21:26
[2018-11-30] MEDS ORDERED: HYDR-3165 PO (21:28)
[2018-11-30] MEDS ORDERED: PENI500T PO (21:28)
[2018-11-30] MEDS: PENICILLIN V K 250 MG TABLET. PO ONE (21:49)
[2018-11-30] MEDS: HYDROcodone/APAP 5/325MG 1 TAB TABLET PO ONE (21:50)
== END 2018-11-30 21:52 | disposition home or self-care (01) ==
LOC: ER 20:44
DX: K08.89 Other specified disorders of teeth and supporting structures (principal)
CPT/HCPCS: 99283

== ENCOUNTER 2019-02-11 22:17 | Emergency (ER) | payer SELFPAY ==
[~2019-02-11] VITALS: Ht 177.8 cm; Wt 76.2 kg
[~2019-02-11 22:17] MED LIST changes: +PENI500T PO
[2019-02-11] MEDS ORDERED: ERYT1OIN6 OP (23:10)
[2019-02-11] MEDS ORDERED: TRAM50TA PO (23:10)
--- NOTE | 2019-02-11 23:10 | PHYS DOC ---
Past History Past Medical History: No Pertinent History Past Surgical History: Other Alcohol Use: None Drug Use: None Adult General Chief Complaint Chief Complaint: EYE PROBLEMS HPI HPI Patient is a 63 year old male who presents with complaint of eye pain. He states that he is having a burning sensation to both eyes and has noticed redness. 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 Denies any loss of vision. States that his pain is quite severe. Has not taken any medications tonight for his symptoms. He states that his pain worsens with light exposure. Has had increased tearing but denies any abnormal discharge. Review of Systems Review of Systems Constitutional: Denies fever or chills [] Eyes: Eye pain, redness, no loss of vision[] HENT: Denies nasal congestion or sore throat [] Respiratory: Denies cough or shortness of breath [] Cardiovascular: No additional information not addressed in HPI [] GI: Denies abdominal pain, nausea, vomiting, bloody stools or diarrhea [] : Denies dysuria or hematuria [] Musculoskeletal: Denies back pain or joint pain [] Integument: Denies rash or skin lesions [] Neurologic: Denies headache, focal weakness or sensory changes [] All other systems were reviewed and found to be within normal limits, except as documented in this note. Allergies Allergies Allergies Coded Allergies Type Severity Reaction Last Updated Verified No Known Drug Allergies 11/30/18 No Physical Exam Physical Exam Constitutional: Alert, afebrile, appears in moderate discomfort. [] HENT: Normocephalic, atraumatic, bilateral external ears normal, oropharynx moist, no oral exudates, nose normal. [] Eyes: PERRLA, photophobia present, EOMI, scleral injection present, conjunctiva normal, no discharge. [] Neck: Normal range of motion, no tenderness, supple, no stridor. [] Cardiovascular:Heart rate regular rhythm, no murmur [] Lungs & Thorax: Bilateral breath sounds clear to auscultation [] Abdomen: Bowel sounds normal, soft, no tenderness, no masses, no pulsatile masses. [] Skin: Warm, dry, no erythema, no rash. [] Back: No tenderness, no CVA tenderness. [] Extremities: No tenderness, no cyanosis, no clubbing, ROM intact, no edema. [] Neurologic: Alert and oriented X 3, normal motor function, normal sensory function, no focal deficits noted. [] Current Patient Data Vital Signs Vital Signs Date Time Temp Pulse Resp B/P (MAP) Pulse Ox O2 Delivery O2 Flow Rate FiO2 02/11/19 23:23 98.0 79 20 96 Room Air Lab Results Not performed EKG EKG Not performed[] Radiology/Procedures Radiology/Procedures Not performed[] Course & Med Decision Making Course & Med Decision Making Pertinent Labs and Imaging studies reviewed. (See chart for details) Symptoms appear consistent with photokeratitis secondary to exposure to welding flare without eye protection. Patient treated with tramadol and erythromycin ointment. Advised continued treatment with erythromycin ointment over the next 3-5 days and also prescribed tramadol as needed for pain. Advised follow-up with primary doctor in the next 5 days if symptoms are not improving and return to emergency department for any worsening symptoms. Patient was understanding and in agreement with treatment plan.[] Dragon Disclaimer Dragon Disclaimer This electronic medical record was generated, in whole or in part, using a voice recognition dictation system. Departure Departure: Impression: Primary Impression: Photokeratitis of both eyes Disposition: HOME, SELF-CARE Condition: STABLE Referrals: PCP,NO (PCP) Patient Instructions: Eye - Ultraviolet Keratitis Additional Instructions: Your condition today was caused by exposure to welding light without eye protection. This causes a burning sensation to the eyes that is painful but celso nkfully will not cause any permanent harm to your eyes. You will need to continue medications prescribed today over the next 2-3 days until your symptoms resolved. Follow-up with your primary doctor in the next 4-5 days if symptoms have not improved. Return to the emergency department for any worsening symptoms. Scripts Erythromycin Base (Erythromycin) 1 Gm Oint...g. 0.5 INCH OP QID for 5 Days, #1 TUBE Prov: TYLER BRYANT MD 02/11/19 Tramadol Hcl (TRAMADOL HCL) 50 Mg Tablet 50 MG PO PRN Q6HRS PRN for PAIN, #20 TAB Prov: TYLER BRYANT MD 02/11/19 TYLER BRYANT MD February 11, 2019 23:10
[2019-02-11] MEDS ORDERED: traMADol 50 MG TABLET ONE (23:13)
[2019-02-11 23:23] VITALS: BP 153/83
[2019-02-11] MEDS ORDERED: traMADol 50 MG TABLET PO ONE (23:30)
[2019-02-11] MEDS ORDERED: ERYTHROMYCIN 0.5% OPHTH OINTMENT 1GM TUBE. OU ONE (23:30)
== END 2019-02-11 23:33 | disposition home or self-care (01) ==
LOC: ER 22:21
DX: H16.133 Photokeratitis, bilateral (principal)
CPT/HCPCS: 99283

== ENCOUNTER 2019-03-21 23:35 | Emergency (ER) | payer SELFPAY ==
[~2019-03-21] VITALS: Ht 177.8 cm; Wt 66.5 kg
[~2019-03-21 23:35] MED LIST changes: +ERYT1OIN6 OP
[2019-03-21] MEDS ORDERED: FLUORESCEIN 1MG EYE STRIP. ONE (23:49)
[2019-03-21] MEDS ORDERED: TETRACAINE 0.5% OPHTH SOLUTION 4ML BOTTLE. ONE (23:49)
[2019-03-21] MEDS ORDERED: KETOROLAC 60 MG/2 ML VIAL. IM ONE (23:51)
[2019-03-22] MEDS ORDERED: FLUORESCEIN 1MG EYE STRIP. OU ONE
[2019-03-22] MEDS ORDERED: OXYC1TAB22 PO (00:10)
[2019-03-22] MEDS ORDERED: OFLO5DRO EACHEYE (00:10)
[2019-03-22 00:20] VITALS: BP 122/84
--- NOTE | 2019-03-22 00:24 | PHYS DOC ---
General Chief Complaint: EYE PROBLEMS Stated Complaint: EYE PROBLEM Time Seen by MD: 23:42 Source: patient Exam Limitations: no limitations History of Present Illness Initial Comments 63 year old male who presents with B eye pain after watching his son weld earlier this afternoon. Complains of eye burning and tearing starting tomorrow 1 hour prior to arrival. No other acute symptoms or complaints. Timing/Duration: this evening Severity: moderate, severe Location: eye (R), eye (L) Prearrival Treatment: over the counter meds Associated Symptoms: denies symptoms Allergies: Coded Allergies: No Known Drug Allergies (Unverified , 02/15/19) Past Medical History Medical History: no pertinent history Family History Significant Family History: no pertinent family hx Constitutional: see HPI Eyes: blurred vision, decreased acuity, inflammation, pain, photophobia, vision change Ears: no symptoms reported Nose: no symptoms reported Mouth: no symptoms reported Throat: no symptoms reported Respiratory: no symptoms reported Physical Exam General Appearance: WD/WN Eyes: bilateral eye vision changes (no uptake on flurescin staining) Nose: normal inspection Orders, Labs, Meds Visual acuity per nursing notes. Pain addressed. Recommend ophthalmology follow up. CASTILLO DAVIS DO Mar 22, 2019 00:24
[2019-03-22] MEDS ORDERED: oxyCODONE/APAP 10/325 1 TAB TABLET PO ONE (00:30)
[2019-03-22] MEDS ORDERED: TETRACAINE 0.5% OPHTH SOLUTION 4ML BOTTLE. OU ONE (00:30)
[2019-03-22] MEDS ORDERED: KETOROLAC 60 MG/2 ML VIAL. IM ONE (00:30)
== END 2019-03-22 00:23 | disposition home or self-care (01) ==
LOC: ER 23:35
DX: H57.13 Ocular pain, bilateral (principal); H53.8 Other visual disturbances
CPT/HCPCS: 96372; 99283; J1885

== ENCOUNTER 2019-05-15 22:50 | Emergency (ER) | payer SELFPAY ==
[~2019-05-15] VITALS: Ht 177.8 cm; Wt 66.5 kg
[~2019-05-15 22:50] MED LIST changes: +OFLO5DRO EACHEYE; +OXYC1TAB22 PO
[2019-05-15 22:55] VITALS: BP 122/84
[2019-05-15] MEDS ORDERED: FLUORESCEIN 1MG EYE STRIP. ONE (22:59)
[2019-05-15] MEDS ORDERED: TETRACAINE 0.5% OPHTH SOLUTION 4ML BOTTLE. ONE (22:59)
[2019-05-15] MEDS ORDERED: ERYTHROMYCIN 0.5% OPHTH OINTMENT 1GM TUBE. ONE (23:10)
[2019-05-15] MEDS ORDERED: TETRACAINE 0.5% OPHTH SOLUTION 4ML BOTTLE. OU ONE (23:15)
[2019-05-15] MEDS ORDERED: FLUORESCEIN 1MG EYE STRIP. OU ONE (23:15)
[2019-05-15] MEDS ORDERED: ERYT1OIN6 OP (23:18)
[2019-05-15] MEDS ORDERED: TRAM50TA PO (23:18)
--- NOTE | 2019-05-15 23:20 | PHYS DOC ---
Past History Past Medical History: Arthritis, Other Past Surgical History: Other Alcohol Use: Sober Drug Use: None Adult General Chief Complaint Chief Complaint: EYE PROBLEMS HPI HPI 63-year-old male presents with bilateral eye pain. 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 The patient was not wearing a welding mask. A few hours after finishing the work, he started to have eye discomfort which turned and eye pain. He now has bilateral eye pain that is moderate to severe. He is unable to sleep. It is difficult to hold his eyes open. He has lots of tearing. Review of Systems Review of Systems Constitutional: Denies fever or chills [] Eyes: redness, eye pain [] HENT: Denies nasal congestion or sore throat [] Respiratory: Denies cough or shortness of breath [] Cardiovascular: No additional information not addressed in HPI [] GI: Denies abdominal pain, nausea, vomiting, bloody stools or diarrhea [] : Denies dysuria or hematuria [] Musculoskeletal: Denies back pain or joint pain [] Integument: Denies rash or skin lesions [] Neurologic: Denies headache, focal weakness or sensory changes [] Endocrine: Denies polyuria or polydipsia [] All other systems were reviewed and found to be within normal limits, except as documented in this note. Current Medications Current Medications Current Medications Medications (Trade) Dose Ordered Sig/Herman Start Time Stop Time Status Last Admin Dose Admin Fluorescein Sodium (Ful-Florinda 1mg) 1 strip 1X ONCE 05/15/19 23:15 05/15/19 23:16 Tetracaine HCl (Tetracaine) 1 drop 1X ONCE 05/15/19 23:15 05/15/19 23:16 Allergies Allergies Allergies Coded Allergies Type Severity Reaction Last Updated Verified No Known Drug Allergies 02/15/19 No Physical Exam Physical Exam Constitutional: Well developed, well nourished, no acute distress, non-toxic appearance. [] HENT: Normocephalic, atraumatic, bilateral external ears normal, oropharynx moist, no oral exudates, nose normal. [] Eyes: PERRLA, EOMI, conjunctiva erythematous bilaterally, no discharge. [] Neck: Normal range of motion, no tenderness, supple, no stridor. [] Cardiovascular:Heart rate regular rhythm, no murmur [] Lungs & Thorax: Bilateral breath sounds clear to auscultation [] Abdomen: Bowel sounds normal, soft, no tenderness, no masses, no pulsatile masses. [] Skin: Warm, dry, no erythema, no rash. [] Back: No tenderness, no CVA tenderness. [] Extremities: No tenderness, no cyanosis, no clubbing, ROM intact, no edema. [] Neurologic: Alert and oriented X 3, normal motor function, normal sensory function, no focal deficits noted. [] Psychologic: Affect normal, judgement normal, mood normal. [] EKG EKG [] Radiology/Procedures Radiology/Procedures [] Course & Med Decision Making Course & Med Decision Making Pertinent Labs and Imaging studies reviewed. (See chart for details) Patient appears to sunburn to his eyes welding. I did perform a for some exam of both eyes. He did have small areas of uptake in both eyes. I will treat him with erythromycin ointment for 7 days. We will give first dose in the ED. I will schedule the patient tramadol and the ED and a prescription for home for his discomfort. He is stable for discharge at this time. [] Dragon Disclaimer Dragon Disclaimer This electronic medical record was generated, in whole or in part, using a voice recognition dictation system. Departure Departure: Impression: Primary Impression: Corneal burn Additional Impression: Burn of left cornea Disposition: HOME, SELF-CARE Condition: STABLE Referrals: PCP,NO (PCP) Patient Instructions: Eye - Corneal Abrasion, [id number] Scripts Tramadol Hcl (TRAMADOL HCL) 50 Mg Tablet 50 MG PO PRN Q6HRS PRN for PAIN, #10 TAB Prov: CASTILLO BUENROSTRO DO 05/15/19 Erythromycin Base (Erythromycin) 1 Gm Oint...g. 1 GM OP TID for corneal abrasion for 7 Days, #1 MISC Prov: CASTILLO BUENROSTRO DO 05/15/19 Problem Qualifiers Primary Impression: Corneal burn Encounter type: initial encounter Laterality: right Qualified Codes: T26.11XA - Burn of cornea and conjunctival sac, right eye, initial encounter Additional Impression: Burn of left cornea Encounter type: initial encounter Qualified Codes: T26.12XA - Burn of cornea and conjunctival sac, left eye, initial encounter CASTILLO BUENROSTRO DO May 15, 2019 23:20
[2019-05-15] MEDS ORDERED: traMADol 50 MG TABLET PO ONE (23:30)
[2019-05-15] MEDS ORDERED: ERYTHROMYCIN 0.5% OPHTH OINTMENT 1GM TUBE. OU ONE (23:30)
== END 2019-05-15 23:20 | disposition home or self-care (01) ==
LOC: ER 22:50
DX: T26.11XA Burn of cornea and conjunctival sac, right eye, initial encounter (principal); T26.12XA Burn of cornea and conjunctival sac, left eye, initial encounter; M19.90 Unspecified osteoarthritis, unspecified site; X17.XXXA Contact with hot engines, machinery and tools, initial encounter; Y93.89 Activity, other specified; Y92.89 Other specified places as the place of occurrence of the external cause; Y99.8 Other external cause status
CPT/HCPCS: 99283

== ENCOUNTER 2019-06-30 15:14 | Emergency (ER) | payer SELFPAY ==
[~2019-06-30] VITALS: Ht 177.8 cm; Wt 67.6 kg
[2019-06-30 15:23] VITALS: BP 164/86
[2019-06-30] MEDS ORDERED: FLUORESCEIN 1MG EYE STRIP. ONE (15:28)
[2019-06-30] MEDS ORDERED: FLUORESCEIN 1MG EYE STRIP. OU ONE (15:30)
[2019-06-30] MEDS ORDERED: TETRACAINE 0.5% OPHTH SOLUTION 4ML BOTTLE. OU ONE (15:30)
[2019-06-30] MEDS ORDERED: MELO7.5T29 PO (15:40)
[2019-06-30] MEDS ORDERED: HYDR-3165 PO (15:40)
[2019-06-30] MEDS ORDERED: ERYT1OIN6 OP (15:40)
--- NOTE | 2019-06-30 15:42 | PHYS DOC ---
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 Pain has been getting worse over time. Artery drainage is present. There is pain with lights. Patient wears reading glasses, no contacts. Pain is moderate to severe. Better in dark environments. Nothing struck his eyes.[] Review of Systems Review of Systems Constitutional: Denies fever or chills [] Eyes: See history of present illness[] HENT: Denies nasal congestion or sore throat [] Respiratory: Denies cough or shortness of breath [] Cardiovascular: No chest pain or palpitations[] GI: Denies abdominal pain, nausea, vomiting, bloody stools or diarrhea [] : Denies dysuria or hematuria [] Musculoskeletal: Denies back pain or joint pain [] Integument: Denies rash or skin lesions [] Neurologic: Denies headache, focal weakness or sensory changes [] Endocrine: Denies polyuria or polydipsia [] All other systems were reviewed and found to be within normal limits, except as documented in this note. Current Medications Current Medications Current Medications Medications (Trade) Dose Ordered Sig/Herman Start Time Stop Time Status Last Admin Dose Admin Fluorescein Sodium (Ful-Florinda 1mg) 1 strip STK-MED ONCE 06/30/19 15:28 06/30/19 15:28 DC Tetracaine HCl (Tetracaine) 1 drop 1X ONCE 06/30/19 15:30 06/30/19 15:31 DC Allergies Allergies Allergies Coded Allergies Type Severity Reaction Last Updated Verified No Known Drug Allergies 02/15/19 No Physical Exam Physical Exam Constitutional: Well developed, well nourished, mild discomfort, non-toxic appearance. [] HENT: Normocephalic, atraumatic, bilateral external ears normal, oropharynx moist, no oral exudates, nose normal. [] Eyes: PERRLA, EOMI, conjunctiva injected bilaterally, watery discharge is present. Anterior chambers clear, normal funduscopic exam. Fluorescein exam shows no foreign body, no Ashia's sign, and no fluorescein uptake.. [] Neck: Normal range of motion, no tenderness, supple, no stridor. [] Cardiovascular:Heart rate regular rhythm, no murmur [] Lungs & Thorax: Bilateral breath sounds clear to auscultation [] Abdomen: Not examined. [] Skin: Warm, dry, no erythema, no rash. [] Back: No tenderness, no CVA tenderness. [] Extremities: No tenderness, no cyanosis, no clubbing, ROM intact, no edema. [] Neurologic: Alert and oriented X 3, normal motor function, normal sensory function, no focal deficits noted. [] Psychologic: Affect normal, judgement normal, mood normal. [] Current Patient Data Vital Signs Vital Signs Date Time Temp Pulse Resp B/P (MAP) Pulse Ox O2 Delivery O2 Flow Rate FiO2 06/30/19 15:23 98.3 68 16 100 Room Air EKG EKG [] Radiology/Procedures Radiology/Procedures [] Course & Med Decision Making Course & Med Decision Making Pertinent Labs and Imaging studies reviewed. (See chart for details) ED course: Patient arrived, was placed in bed, and tolerated exam well. He had a drop of tetracaine administered to each eye which immediately improved the discomfort. Eye exam was performed as noted. visual acuity was 20/30 in each eye utilizing a visual acuity application. Findings were discussed with the patient who voiced understanding. All questions were answered. He was discharged in improved condition. Medical decision making: There is no evidence of a foreign body. No evidence of decreased visual acuity. No evidence of uveitis. 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 No central retinal artery or vein occlusion. No angle closure glaucoma.[] Dragon Disclaimer Dragon Disclaimer This electronic medical record was generated, in whole or in part, using a voice recognition dictation system. Departure Departure: Impression: Primary Impression: Ultraviolet keratitis of both eyes Disposition: HOME, SELF-CARE Condition: IMPROVED Referrals: PCP,NO (PCP) Patient Instructions: Eye - Ultraviolet Keratitis Additional Instructions: Follow-up with your regular doctor in 2 days. If you do not have a regular doctor list of local clinics we provided for you. Use the medication as prescribed. Return to the ER if worsening pain or any other concerns. Scripts Hydrocodone Bit/Acetaminophen (NORCO 5-325 TABLET) 1 Each Tablet 1 TAB PO Q4-6HRS for severe pain, #20 TAB Prov: JACKI RASCON DO 06/30/19 Meloxicam (MELOXICAM) 7.5 Mg Tablet 7.5 MG PO DAILY for PAIN, #20 TAB Prov: JACKI RASCON DO 06/30/19 Erythromycin Base (Erythromycin) 1 Gm Oint...g. 1 APPLIC OP Q4HRS W/A for ultraviolet keratitis for 5 Days, [facility] Prov: JACKI RASCON DO 06/30/19 JACKI RASCON DO Jun 30, 2019 15:42
== END 2019-06-30 15:55 | disposition home or self-care (01) ==
LOC: ER 15:14
DX: H16.8 Other keratitis (principal); M19.90 Unspecified osteoarthritis, unspecified site; F17.200 Nicotine dependence, unspecified, uncomplicated
CPT/HCPCS: 99283

== ENCOUNTER 2019-07-31 20:39 | Emergency (ER) | payer SELFPAY ==
[~2019-07-31] VITALS: Ht 175.3 cm; Wt 68.0 kg
[~2019-07-31 20:39] MED LIST changes: +MELO7.5T29 PO
--- NOTE | 2019-07-31 20:44 | ED.ADGEN ---
Past History Past Medical History: Arthritis, Sciatica, Other Past Surgical History: Other Smoking: Cigarettes Alcohol Use: Sober Drug Use: None Adult General Chief Complaint Chief Complaint ".. I was getting a limb off my son roof.. and on the way down.. I fell off the ladder.. and landed on this rt side and back...".. " I maybe fell about 7 feet.. sliding down the ladder...." "My son is scared of height's" HPI HPI Patient is a 64 year old male who presents with above hx and complaints right hip and lumbar pain after falling 7 feet, and has a history of chronic low back pain. Patient currently locates his pain at the SI/ lumbar joint on the right and in right hip. Patient is ambulatory with slight limp. Distal neurovascular equal in both feet. Does have decreased pulses on dorsal pedis and posterior pedis. Pulses are equal at popliteal. DTRs are +2 at patella. Loading of right hip joint elicits some pain. Straight leg lift on right exacerbates sciatic-like pain on the right. No saddle loss appreciated. Has been able to urinate and defecate since the fall. Initial injury occurred earlier today at approximately 1400 hrs. Patient denies other injury. Patient denies any history immunos uppression. Patient denies any history of fever or chills. Patient denies any history of cancer. Patient does smoke. Review of Systems Review of Systems Constitutional: Denies fever or chills [] Eyes: Denies change in visual acuity, redness, or eye pain [] HENT: Denies nasal congestion or sore throat [] Respiratory: Denies cough or shortness of breath [] Cardiovascular: No additional information not addressed in HPI [] GI: Denies abdominal pain, nausea, vomiting, bloody stools or diarrhea [] : Denies dysuria or hematuria [] Musculoskeletal: Complaints of lumbar sacral back pain and right hip pain Integument: Denies rash or skin lesions [] Neurologic: Denies headache, focal weakness or sensory changes [] Endocrine: Denies polyuria or polydipsia [] All other systems were reviewed and found to be within normal limits, except as documented in this note. Family History Family History Noncontributory Current Medications Current Medications Current Medications Medications (Trade) Dose Ordered Sig/Herman Start Time Stop Time Status Last Admin Dose Admin Ketorolac Tromethamine (Toradol Im) 60 mg 1X ONCE 07/31/19 22:30 07/31/19 22:49 DC 07/31/19 22:38 60 MG Morphine Sulfate (Morphine 10mg Syringe) 10 mg 1X ONCE 07/31/19 22:30 07/31/19 22:49 DC 07/31/19 22:39 10 MG Orphenadrine Citrate (Norflex) 60 mg 1X ONCE 07/31/19 22:30 07/31/19 22:49 DC 07/31/19 22:39 60 MG Allergies Allergies Allergies Coded Allergies Type Severity Reaction Last Updated Verified No Known Drug Allergies 02/15/19 No Physical Exam Physical Exam Constitutional: Reports marked acute distress, non-toxic appearance. [] HENT: Normocephalic, atraumatic, bilateral external ears normal, oropharynx moist, no oral exudates, nose normal. [] Eyes: PERRLA, EOMI, conjunctiva normal, no discharge. [] Neck: Normal range of motion, no tenderness, supple, no stridor. [] Cardiovascular:Heart rate regular rhythm, no murmur [] Lungs & Thorax: Bilateral breath sounds with apex with scattered wheezes auscultation [] Abdomen: Bowel sounds normal, soft, no tenderness, no masses, no pulsatile masses. No tenderness on rebound. Patient declines rectal exam. Skin: Warm, dry, no erythema, no rash. [] Back: Right lumbar sacral tenderness, increased tenderness at the lumbar sacral on the right. The patient does have discomfort in right hip but appears to be following the sciatic nerve, no CVA tenderness. [] Extremities: No tenderness, no cyanosis, no clubbing, ROM intact, no edema. [] Straight leg lift on right exacerbates pain in lower back. Neurologic: Alert and oriented X 3, patient moves all extremities on request, does have distal sensory, Psychologic: Affect anxious, judgement normal, mood normal. [] Current Patient Data Vital Signs Vital Signs Date Time Temp Pulse Resp B/P (MAP) Pulse Ox O2 Delivery O2 Flow Rate FiO2 08/01/19 00:13 79 20 146/92 (110) 94 Room Air 07/31/19 20:52 98.8 Lab Results Laboratory Tests Test 07/31/19 22:50 Urine Collection Type Unknown Urine Color Yellow Urine Clarity Clear Urine pH 7.0 Urine Specific [place] 1.020 Urine Protein Neg (NEG-TRACE) Urine Glucose (UA) Neg mg/dL (NEG) Urine Ketones (Stick) Trace mg/dL (NEG) Urine Blood Neg (NEG) Urine Nitrite Neg (NEG) Urine Bilirubin Neg (NEG) Urine Urobilinogen Dipstick 0.2 mg/dL (0.2 mg/dL) Urine Leukocyte Esterase Neg (NEG) Urine RBC 0 /HPF (0-2) Urine WBC Rare /HPF (0-4) Urine Squamous Epithelial Cells Occ /LPF Urine Bacteria 0 /HPF (0-FEW) Urine Mucus Slight /LPF Urine Opiates Screen Neg (NEG) Urine Methadone Screen Neg (NEG) Urine Barbiturates Neg (NEG) Urine Phencyclidine Screen Neg (NEG) Urine Amphetamine/Methamphetamine Neg (NEG) Urine Benzodiazepines Screen Neg (NEG) Urine Cocaine Screen Neg (NEG) Urine Cannabinoids Screen Neg (NEG) Urine Ethyl Alcohol Neg (NEG) EKG EKG [] Radiology/Procedures Radiology/Procedures [][address] [address] IMAGING REPORT Signed PATIENT: JOLIE OLIVARES ACCOUNT: [id number] : 1955 LOCATION: ER AGE: 64 SEX: M EXAM STATUS: REG ER ORD. PHYSICIAN: OMAR NAVARRETE MD REASON: Fall off roof PROCEDURE: CT LUMBAR SPINE WO CONTRAST Exam: CT lumbar spine without contrast CT pelvis without contrast INDICATION: Fall TECHNIQUE: Sequential axial images through the upper spine and pelvis obtained without IV contrast. Sagittal and coronal reformatted images were reconstructed from the axial data and reviewed. Comparisons: 08/12/2018 FINDINGS: Vertebral body heights and alignment are well-maintained. Fracture through the lumbar spine is not identified. Spondylotic change in the lumbar spine with degenerative disc disease greatest at L2-L3, L3-L4 and L4-L5. No significance neural foraminal or spinal canal stenosis. Visualized paraspinal soft tissues are unremarkable. Pelvis: Visualized intrapelvic structures are within normal limits. Bone mineralization is normal. No acute or healed fractures are identified. Sacroiliac joints, pubic symphysis and hip joints are well-maintained. IMPRESSION: 1. No traumatic sequela identified in the pelvis. 2. Negative CT lumbar spine for acute traumatic injury. Exposure: One or more of the following in the visualized dose reduction techniques were utilized for this examination: 1. Automated exposure control 2. Adjustment of the MA and/or KV according to patient size 3. Use of iterative of reconstructive technique Electronically signed by: Gt Styles MD (07/31/2019 11:18 PM) [facility] DICTATED AND SIGNED BY: GT STYLES MD DATE: 07/31/19 0122 CC: OMAR NAVARRETE MD; PCP,NO ~ Course & Med Decision Making Course & Med Decision Making Pertinent Labs and Imaging studies reviewed. (See chart for details) Patient use ice packs as needed. Take Tylenol and ibuprofen for pain. Take Flexeril 10 mg up 3 times a day for muscle spasms. Patient follow-up primary care. Patient return if any concerns. [] Final Impression Final Impression 1. Fall[] 2. DJD Lumbar and Hips 3. History of sciatica 4. Contusion right hip and lower back 5. Tobacco use Dragon Disclaimer Dragon Disclaimer This electronic medical record was generated, in whole or in part, using a voice recognition dictation system. Dragon Disclaimer This chart was dictated in whole or in part using Voice Recognition software in a busy, high-work load, and often noisy Emergency Department environment. It may contain unintended and wholly unrecognized errors or omissions. Dragon Disclaimer This chart was dictated in whole or in part using Voice Recognition software in a busy, high-work load, and often noisy Emergency Department environment. It may contain unintended and wholly unrecognized errors or omissions. OMAR NAVARRETE MD Jul 31, 2019 20:44
[2019-07-31] MEDS ORDERED: KETOROLAC 60 MG/2 ML VIAL. IM ONE (22:30)
[2019-07-31] MEDS ORDERED: ORPHENADRINE CITRATE 60 MG/2 ML VIAL. IM ONE (22:30)
[2019-07-31] MEDS ORDERED: MORPHINE SULFATE 10 MG/ML SYRINGE. SQ ONE (22:30)
[2019-07-31 23:14] LABS: AMPHETAMINE/METHAMPHETAMINE NEG (NEG); BARBITURATES NEG (NEG); BENZODIAZEPINES NEG (NEG); CANNABINOIDS NEG (NEG); COCAINE NEG (NEG); METHADONE NEG (NEG); OPIATES NEG (NEG); PHENCYCLIDINE NEG (NEG)
[2019-07-31 23:19] LABS: BILIRUBIN,URINE NEG (NEG); CLARITY,URINE CLEAR; COLOR,URINE YELLOW; GLUCOSE,URINE NEG (NEG); NITRITE,URINE NEG (NEG); UROBILINOGEN,URINE 0.2 mg/dL (0.2 mg/dL)
[2019-07-31 23:20] LABS: BACTERIA,URINE 0 /HPF (0-FEW); RBC,URINE 0 /HPF (0-2); SQUAMOUS EPITHELIAL CELL,UR OCC /LPF; WBC,URINE RARE /HPF (0-4)
--- NOTE | 2019-07-31 23:21 | RAD ---
Exam: CT lumbar spine without contrast CT pelvis without contrast INDICATION: Fall TECHNIQUE: Sequential axial images through the upper spine and pelvis obtained without IV contrast. Sagittal and coronal reformatted images were reconstructed from the axial data and reviewed. Comparisons: 08/12/2018 FINDINGS: Vertebral body heights and alignment are well-maintained. Fracture through the lumbar spine is not identified. Spondylotic change in the lumbar spine with degenerative disc disease greatest at L2-L3, L3-L4 and L4-L5. No significance neural foraminal or spinal canal stenosis. Visualized paraspinal soft tissues are unremarkable. Pelvis: Visualized intrapelvic structures are within normal limits. Bone mineralization is normal. No acute or healed fractures are identified. Sacroiliac joints, pubic symphysis and hip joints are well-maintained. IMPRESSION: 1. No traumatic sequela identified in the pelvis. 2. Negative CT lumbar spine for acute traumatic injury. Exposure: One or more of the following in the visualized dose reduction techniques were utilized for this examination: 1. Automated exposure control 2. Adjustment of the MA and/or KV according to patient size 3. Use of iterative of reconstructive technique Electronically signed by: Gt Dietrich MD (07/31/2019 11:18 PM) [facility]
[2019-07-31] MEDS ORDERED: CYCL-331 PO (23:57)
[2019-08-01 00:13] VITALS: BP 146/92
== END 2019-08-01 00:12 | disposition home or self-care (01) ==
LOC: ER 20:39
DX: S30.0XXA Contusion of lower back and pelvis, initial encounter (principal); S70.01XA Contusion of right hip, initial encounter; M16.0 Bilateral primary osteoarthritis of hip; M47.896 Other spondylosis, lumbar region; M19.90 Unspecified osteoarthritis, unspecified site; F17.210 Nicotine dependence, cigarettes, uncomplicated; W11.XXXA Fall on and from ladder, initial encounter; Y93.89 Activity, other specified; Y92.89 Other specified places as the place of occurrence of the external cause; Y99.8 Other external cause status
CPT/HCPCS: 36415; 72131; 72192; 80307; 81001; 96372; 99285; J1885; J2270; J2360

== ENCOUNTER 2021-09-22 00:53 | Emergency (ER) | payer SELFPAY ==
[~2021-09-22] VITALS: Ht 175.3 cm; Wt 67.6 kg
[~2021-09-22 00:53] MED LIST changes: -CYCL-331 PO; +CYCL10TA19 PO
[2021-09-22] MEDS ORDERED: FLUORESCEIN 1MG EYE STRIP. OS ONE (02:30)
[2021-09-22] MEDS ORDERED: TETRACAINE 0.5% OPHTH SOLUTION 4ML BOTTLE. OU ONE (02:30)
[2021-09-22] MEDS ORDERED: KETOROLAC TROMETHAMINE 0.5% OPHTH SOLUTION BOTTLE. OS ONE (02:30)
[2021-09-22] MEDS ORDERED: ERYTHROMYCIN 0.5% OPHTH OINTMENT 1GM TUBE. OD ONE (02:30)
[2021-09-22] MEDS ORDERED: CYCLOPENTOLATE 1% OPTH SOLUTION 2ML BOTTLE. OU ONE (02:30)
--- NOTE | 2021-09-22 02:32 | PHYS DOC ---
Past History Past Medical History: Arthritis, Sciatica, Other Past Surgical History: No Surgical History Smoking: Cigarettes Alcohol Use: Sober Drug Use: None General Adult EDM: Chief Complaint: EYE PROBLEMS HPI: HPI: ".. 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 and I guess I got too much flash.. but eye are on fire.. " Patient is a 66 year old male who presents with above hx and complaint of bilateral eye pain. Patient has obvious bilateral conjunctivitis and take up of fluorescein and corneas in both eyes. Does have limbus injection. Visual acuity isofd 20/70, os20/50 and 20/40 both eyes. Extraocular muscles intact. Patient was not grinding or using cutting instruments. Does have some cell. Does have photophobia. Fundus exam somewhat limited. Does have scarring on right eye-history of previous surgery. No recent travel. No severe ill contacts. Normally healthy. Tetanus is up-to-date as 2 years ago. Eyes were not dilated for exam due to previous severe reaction to Cyclogyl. Review of Systems: Review of Systems: Constitutional: Denies fever or chills Eyes: Denies change in visual acuity HENT: Denies nasal congestion or sore throat Respiratory: Denies cough or shortness of breath Cardiovascular: Denies chest pain or edema GI: Denies abdominal pain, nausea, vomiting, bloody stools or diarrhea : Denies dysuria Musculoskeletal: Denies back pain or joint pain Integument: Denies rash Neurologic: Denies headache, focal weakness or sensory changes Endocrine: Denies polyuria or polydipsia Lymphatic: Denies swollen glands Psychiatric: Denies depression or anxiety Family History: Family History: Noncontributory Current Medications: Current Meds: Current Medications Medications (Trade) Dose Ordered Sig/Herman Start Time Stop Time Status Last Admin Dose Admin Cyclopentolate HCl (Cyclogyl) 1 drop 1X ONCE 09/22/21 02:30 09/22/21 02:31 Erythromycin (Romycin) 0.25 inch 1X ONCE 09/22/21 02:30 09/22/21 02:31 Fluorescein Sodium (Ful-Florinda 1mg) 1 strip 1X ONCE 09/22/21 02:30 09/22/21 02:31 Ketorolac Tromethamine (Acular) 1 drop 1X ONCE 09/22/21 02:30 09/22/21 02:31 Tetracaine HCl (Tetracaine) 4 drop 1X ONCE 09/22/21 02:30 09/22/21 02:31 Allergies: Allergies: Allergies Coded Allergies Type Severity Reaction Last Updated Verified No Known Drug Allergies 02/15/19 No Physical Exam: PE: Constitutional: in acute distress, non-toxic appearance. [] HENT: Normocephalic, atraumatic, bilateral external ears normal, oropharynx moist, no oral exudates, nose normal. [] Eyes: PERRLA, EOMI, conjunctiva injected, no discharge. Ultraviolet corneal bui-uptake of fluorescein Neck: Normal range of motion, no tenderness, supple, no stridor. [] Cardiovascular:Heart rate regular rhythm, no murmur [] Lungs & Thorax: Bilateral breath sounds equal apex scattered wheezes auscultation [] Abdomen: Bowel sounds normal, soft, no tenderness, no masses, no pulsatile masses. [] Skin: Warm, dry, no erythema, no rash. [] Back: No tenderness, no CVA tenderness. [] Extremities: No tenderness, no cyanosis, no clubbing, ROM intact, no edema. [] Neurologic: Alert and oriented X 3, normal motor function, normal sensory function, no focal deficits noted. [] Psychologic: Affect anxious judgement normal, mood normal. [] EKG: EKG: [] Radiology/Procedures: Radiology/Procedures: [] Heart Score: C/O Chest Pain: N/A Risk Factors: Risk Factors: DM, Current or recent (<one month) smoker, HTN, HLP, family history of CAD, obesity. Risk Scores: Score 0 - 3: 2.5% MACE over next 6 weeks - Discharge Home Score 4 - 6: 20.3% MACE over next 6 weeks - Admit for Clinical Observation Score 7 - 10: 72.7% MACE over next 6 weeks - Early Invasive Strategies Course & Med Decision Making: Course & Med Decision Making Pertinent Labs and Imaging studies reviewed. (See chart for details) Patient may use the Toradol eyedrop 2 drops both eyes 4 times a day. Use a very small amount erythromycin ointment 4 times a day. Follow-up primary care. Follow-up with ophthalmology. Take Tylenol and ibuprofen for pain. Impression": 1. Bilateral ultraviolet [] Dragon Disclaimer: Dragon Disclaimer: This electronic medical record was generated, in whole or in part, using a voice recognition dictation system. Departure Departure: Referrals: NON,STAFF (PCP) Tadeo Disclaimer This chart was dictated in whole or in part using Voice Recognition software in a busy, high-work load, and often noisy Emergency Department environment. It may contain unintended and wholly unrecognized errors or omissions. OMAR NAVARRETE MD Sep 22, 2021 02:32
[2021-09-22 02:37] VITALS: BP 132/90
[2021-09-22] MEDS ORDERED: ONDANSETRON ODT 4 MG TAB.RAPDIS ONE (04:00)
[2021-09-22] MEDS ORDERED: MORPHINE SULFATE 10 MG/ML SYRINGE. SQ ONE (04:00)
[2021-09-22] MEDS ORDERED: ONDANSETRON ODT 4 MG TAB.RAPDIS PO ONE (04:00)
[2021-09-22] MEDS ORDERED: KETOROLAC 60 MG/2 ML VIAL. IM ONE (04:00)
== END 2021-09-22 04:06 | disposition home or self-care (01) ==
LOC: ER 00:53
DX: T26.12XA Burn of cornea and conjunctival sac, left eye, initial encounter (principal); T26.11XA Burn of cornea and conjunctival sac, right eye, initial encounter; M19.90 Unspecified osteoarthritis, unspecified site; F17.210 Nicotine dependence, cigarettes, uncomplicated; X08.8XXA Exposure to other specified smoke, fire and flames, initial encounter; Y93.89 Activity, other specified; Y92.89 Other specified places as the place of occurrence of the external cause; Y99.8 Other external cause status
CPT/HCPCS: 96372; 99284; J1885; J2270; Q0162

== ENCOUNTER 2022-02-05 02:10 | Emergency (ER) | payer SELFPAY ==
[~2022-02-05] VITALS: Ht 175.3 cm; Wt 71.5 kg
[2022-02-05 02:21] VITALS: BP 138/90
[2022-02-05] MEDS ORDERED: FLUORESCEIN 1MG EYE STRIP. OU ONE (02:30)
[2022-02-05] MEDS ORDERED: TETRACAINE 0.5% OPHTH SOLUTION 4ML BOTTLE. OU ONE (02:30)
[2022-02-05] MEDS ORDERED: ERYT1OIN6 OP (02:44)
[2022-02-05] MEDS ORDERED: HYDR-2759 PO (02:44)
--- NOTE | 2022-02-05 02:46 | PHYS DOC ---
Past History Past Medical History: Arthritis, Sciatica, Other Past Surgical History: Other Additional Past Surgical Histo: dental surgery Smoking: Cigarettes Alcohol Use: Sober Drug Use: None General Adult EDM: Chief Complaint: EYE PROBLEMS HPI: HPI: 66-year-old male presents with bilateral eye pain. 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 A few hours after they finished, the patient began to have bilateral eye discomfort. The pain increased over the next hour or 2. The patient is unable to fall asleep. He decided to come in for evaluation. He does not believe he got any foreign bodies in his eyes. Review of Systems: Review of Systems: Constitutional: Denies fever or chills Eyes: Bilateral eye pain HENT: Denies nasal congestion or sore throat Respiratory: Denies cough or shortness of breath Cardiovascular: Denies chest pain or edema GI: Denies abdominal pain, nausea, vomiting, bloody stools or diarrhea : Denies dysuria Musculoskeletal: Denies back pain or joint pain Integument: Denies rash Neurologic: Denies headache, focal weakness or sensory changes Endocrine: Denies polyuria or polydipsia Lymphatic: Denies swollen glands Psychiatric: Denies depression or anxiety Current Medications: Current Meds: Current Medications Medications (Trade) Dose Ordered Sig/Herman Start Time Stop Time Status Last Admin Dose Admin Acetaminophen/ Hydrocodone Bitart (Lortab 7.5/325) 1 tab 1X ONCE 02/05/22 02:45 02/05/22 02:46 UNV Erythromycin (Romycin) 0.25 inch 1X ONCE 02/05/22 02:45 02/05/22 02:46 UNV Fluorescein Sodium (Ful-Florinda 1mg) 1 strip 1X ONCE 02/05/22 02:30 02/05/22 02:31 DC 02/05/22 02:25 1 STRIP Tetracaine HCl (Tetracaine) 1 drop 1X ONCE 02/05/22 02:30 02/05/22 02:31 DC 02/05/22 02:26 1 DROP Allergies: Allergies: Allergies Coded Allergies Type Severity Reaction Last Updated Verified No Known Drug Allergies 02/05/22 No Physical Exam: PE: Constitutional: Well developed, well nourished, no acute distress, non-toxic appearance. [] HENT: Normocephalic, atraumatic, bilateral external ears normal, oropharynx moist, no oral exudates, nose normal. [] Eyes: PERRLA, EOMI, conjunctiva erythematous bilaterally, clear discharge. [] Neck: Normal range of motion, no tenderness, supple, no stridor. [] Cardiovascular: Heart rate regular rhythm, no murmur [] Lungs & Thorax: Bilateral breath sounds clear to auscultation [] Abdomen: Bowel sounds normal, soft, no tenderness, no masses, no pulsatile masses. [] Skin: Warm, dry, no erythema, no rash. [] Back: No tenderness, no CVA tenderness. [] Extremities: No tenderness, no cyanosis, no clubbing, ROM intact, no edema. [] Neurologic: Alert and oriented X 3, normal motor function, normal sensory function, no focal deficits noted. [] Psychologic: Affect normal, judgement normal, mood normal. [] Current Patient Data: Vital Signs: Vital Signs Date Time Temp Pulse Resp B/P (MAP) Pulse Ox O2 Delivery O2 Flow Rate FiO2 02/05/22 02:21 98.3 92 18 138/90 (106) 98 Room Air EKG: EKG: [] Radiology/Procedures: Radiology/Procedures: [] Heart Score: C/O Chest Pain: N/A Risk Factors: Risk Factors: DM, Current or recent (<one month) smoker, HTN, HLP, family history of CAD, obesity. Risk Scores: Score 0 - 3: 2.5% MACE over next 6 weeks - Discharge Home Score 4 - 6: 20.3% MACE over next 6 weeks - Admit for Clinical Observation Score 7 - 10: 72.7% MACE over next 6 weeks - Early Invasive Strategies Course & Med Decision Making: Course & Med Decision Making Pertinent Labs and Imaging studies reviewed. (See chart for details) I performed a fluorescein and Wood lamp exam on the patient. He had an area of uptake on the lower fourth of the cornea bilaterally. It was a hazy appearance consistent with sunburn or Welders burn. There were no obvious foreign bodies or rust rings. I have given the patient a dose of [place] in the ER for discomfort. I will give him a few more for tomorrow as well as erythromycin ointment for prophylaxis. He is stable for discharge at this time. [] Dragon Disclaimer: Dragon Disclaimer: This electronic medical record was generated, in whole or in part, using a voice recognition dictation system. Departure Departure: Impression: Primary Impression: Welders' keratitis of both eyes Disposition: HOME / SELF CARE / HOMELESS Condition: STABLE Referrals: PCP,UNKNOWN (PCP) Patient Instructions: Eye - Ultraviolet Keratitis, [id number] Scripts Erythromycin Base (Erythromycin) 1 Gm Oint...g. 1 GM OP TID for bacterial conjunctivitis for 7 Days, #1 MISC Prov: CASTILLO BUENROSTRO DO 02/05/22 Hydrocodone/Acetaminophen (Hydrocodone-Acetamin 5-325 mg) 1 Each Tablet 1 EACH PO Q4-6HRS PRN for PAIN, #10 TAB Prov: CASTILLO BUENROSTRO DO 02/05/22 CASTILLO BUENROSTRO DO February 05, 2022 02:45
[2022-02-05] MEDS ORDERED: HYDROcodone/APAP 7.5/325MG 1 TAB TABLET PO ONE (03:00)
[2022-02-05] MEDS ORDERED: ERYTHROMYCIN 0.5% OPHTH OINTMENT 1GM TUBE. OU ONE (03:00)
== END 2022-02-05 02:49 | disposition home or self-care (01) ==
LOC: ER 02:10
DX: H16.133 Photokeratitis, bilateral (principal); M19.90 Unspecified osteoarthritis, unspecified site; F17.210 Nicotine dependence, cigarettes, uncomplicated; W89.8XXA Exposure to other man-made visible and ultraviolet light, initial encounter; Y93.89 Activity, other specified; Y92.89 Other specified places as the place of occurrence of the external cause; Y99.8 Other external cause status
CPT/HCPCS: 99284